=== PATIENT | male | born 1965 | race Caucasian/White ===

== ENCOUNTER → 2018-08-14 | Outpatient (CLI) | payer OTHER ==
[~2018-08-14] MED LIST: CYCL-259 PO; MELO15TA24 PO; MELO7.5T31 PO; OXYC5TAB2 PO; TRAM50TA2 PO
[2018-08-14 13:49] LABS: BASOPHILS # (AUTO) 0.03 x10^3/uL (0-0.1); BASOPHILS % (AUTO) 0 % (0-1); EOSINOPHILS # (AUTO) 0.13 x10^3/uL (0-0.4); EOSINOPHILS % (AUTO) 2 % (1-7); LYMPHOCYTES # (AUTO) 2.52 x10^3/uL (1-3.4); LYMPHOCYTES % (AUTO) 28 % (22-44); MD NO; MEAN CORPUSCULAR HEMOGLOBIN 32.5 pg (27.5-34.5); MEAN CORPUSCULAR HGB CONC 34.4 g/dL (33.2-36.2); MEAN CORPUSCULAR VOLUME 94.4 fL (81-97); MEAN PLATELET VOLUME 8.4 fL (7.4-10.4); MONOCYTES # (AUTO) 0.67 x10^3/uL (0.2-0.8); MONOCYTES % (AUTO) 8 % (2-9); NEUTROPHILS # (AUTO) 5.68 x10^3/uL (1.8-6.8); NEUTROPHILS % (AUTO) 63 % (42-75); PLATELET COUNT 274 x10^3/uL (130-400); RED BLOOD COUNT 4.94 x10^6/uL (4.38-5.82); RED CELL DISTRIBUTION WIDTH 13.8 % (9.4-14.8)
[2018-08-14 13:59] LABS: ALANINE AMINOTRANSFERASE 45 U/L (12-78); ALBUMIN 4.4 g/dL (3.4-5.0); ANION GAP 9 mmol/L (5-15); CHLORIDE 109 mmol/L (98-107)
[2018-08-14 14:00] LABS: INTERNATIONAL NORMALIZED RATIO 0.97 (0.93-1.1)
[2018-08-14 14:02] LABS: ALKALINE PHOSPHATASE 42 U/L (45-117); BILIRUBIN,TOTAL 0.4 mg/dL (0.2-1.0); CREATININE 0.88 mg/dL (0.7-1.3); TOTAL PROTEIN 7.9 g/dL (6.4-8.2)
[2018-08-14 14:12] LABS: HEMOGLOBIN A1C 5.6 % (4.2-6.3)
== END | disposition home or self-care (01) ==
LOC: STAR 13:10
PROVIDERS: ATTEND Orthopaedic Surgery
DX: Z01.818 Encounter for other preprocedural examination (principal); M16.11 Unilateral primary osteoarthritis, right hip; M25.551 Pain in right hip
CPT/HCPCS: 36415; 80053; 83036; 85025; 85610; 85730; 87081; 93005

== ENCOUNTER 2018-08-20 10:52 | Inpatient (IN) | payer OTHER ==
[~2018-08-20] VITALS: Ht 175.3 cm; Wt 93.9 kg
[~2018-08-20 10:52] MED LIST changes: -MELO7.5T31 PO; -OXYC5TAB2 PO; -TRAM50TA2 PO
[2018-08-20] MEDS ORDERED: LACTATED RINGERS 1,000 ML IV SCH (11:11)
[2018-08-20] MEDS ORDERED: GABAPENTIN 300 MG CAPSULE PO ONE (11:30)
[2018-08-20] MEDS ORDERED: ACETAMINOPHEN 500 MG TABLET PO ONE (11:30)
[2018-08-20] MEDS ORDERED: OxyconTIN ER 20 MG TAB.ER PO ONE (11:30)
[2018-08-20] MEDS ORDERED: MIDAZOLAM 1 MG/ML, 2ML ONE (12:30)
[2018-08-20] MEDS ORDERED: FENTANYL PF 250 MCG/5ML ONE ×2 (12:30→14:23)
[2018-08-20] MEDS ORDERED: PROPOFOL 10 MG/ML, 20ML ONE (12:31)
[2018-08-20] MEDS ORDERED: SODIUM CHLORIDE 0.9% PF 10ML ONE (12:31)
[2018-08-20] MEDS ORDERED: CEFAZOLIN 1,000 MG ONE ×2 (12:32)
[2018-08-20] MEDS ORDERED: NEOSTIGMINE 1 MG/ML, 10ML ONE ×2 (12:33→14:43)
[2018-08-20] MEDS ORDERED: GLYCOPYRROLATE 0.2MG/1ML, 5ML ONE (12:33)
[2018-08-20] MEDS ORDERED: ROCURONIUM 10MG/ML,5ML ONE (12:33)
[2018-08-20] MEDS ORDERED: KETOROLAC 60 MG/2 ML ONE (13:12)
[2018-08-20] MEDS ORDERED: TRANEXAMIC ACID 100 MG/ML, 10ML ONE ×2 (13:13→13:14)
[2018-08-20] MEDS ORDERED: EPINEPHRINE 1 MG/ML, 1ML ONE (13:13)
[2018-08-20] MEDS ORDERED: ROPIvacaine/PF 0.5%, 30 ML ONE (13:13)
[2018-08-20] MEDS ORDERED: VANCOMYCIN 1,000 MG ONE (13:13)
[2018-08-20] MEDS ORDERED: SODIUM CHLORIDE 0.9% 100 ML ONE (13:13)
[2018-08-20] MEDS ORDERED: MORPHINE SULFATE 4 MG/ML, 1ML IVPush PRN (14:00)
[2018-08-20] MEDS ORDERED: ONDANSETRON ODT 8 MG PO PRN (14:00)
[2018-08-20] MEDS ORDERED: PROMETHAZINE 25 MG SUPP PR PRN (14:00)
[2018-08-20] MEDS ORDERED: PROMETHAZINE 25 MG/ML, 1ML IV PRN (14:00)
[2018-08-20] MEDS ORDERED: ONDANSETRON 2MG/ML, 2ML IV PRN ×2 (14:00→15:00)
[2018-08-20] MEDS ORDERED: hydrALAzine 20 MG/ML, 1ML IV PRN (14:00)
[2018-08-20] MEDS ORDERED: PROMETHAZINE 25 MG/ML, 1ML IM PRN ×2 (14:00)
[2018-08-20] MEDS ORDERED: LABETALOL 5MG/ML, 20ML IV PRN (14:00)
[2018-08-20] MEDS ORDERED: MEPERIDINE/PF 25MG/0.5ML IVPush PRN (14:00)
[2018-08-20] MEDS ORDERED: FENTANYL PF 100 MCG/2ML IV PRN (14:00)
[2018-08-20] MEDS ORDERED: PROMETHAZINE 12.5 MG SUPP PR PRN (14:00)
[2018-08-20] MEDS ORDERED: GLYCOPYRROLATE 0.4 MG/2 ML, 2ML ONE (14:43)
[2018-08-20] MEDS ORDERED: SENNA/DOCUSATE TABLET PO PRN (15:00)
[2018-08-20] MEDS ORDERED: HYDROcodone/APAP 5/325 TABLET PO PRN (15:00)
[2018-08-20] MEDS ORDERED: ONDANSETRON 4 MG TABLET PO PRN (15:00)
[2018-08-20] MEDS ORDERED: CYCLOBENZAPRINE 10 MG TABLET PO PRN (15:00)
[2018-08-20] MEDS ORDERED: ACETAMINOPHEN 325 MG TABLET PO PRN (15:00)
[2018-08-20] MEDS ORDERED: DIPHENHYDRAMINE 50 MG CAPSULE PO PRN (15:00)
[2018-08-20] MEDS ORDERED: ZOLPIDEM 5MG TABLET PO PRN (15:00)
[2018-08-20] MEDS ORDERED: BISACODYL 10 MG SUPP PR PRN (15:00)
[2018-08-20] MEDS ORDERED: MAGNESIUM HYDROXIDE 8%, 30ML UDC PO PRN (15:00)
[2018-08-20] MEDS ORDERED: OXYcodone 5 MG/5 ML ORAL.SOL UDC ONE ×2 (15:17→15:38)
[2018-08-20] MEDS ORDERED: HYDROmorphone 2 MG/ML, 1ML ONE ×2 (15:17→16:09)
[2018-08-20] MEDS: HYDROmorphone 1 MG/ML, 1ML IV PRN ×6 (15:22→16:18)
[2018-08-20] MEDS: OXYcodone 5 MG/5 ML ORAL.SOL UDC PO PRN ×2 (15:23→15:40)
[2018-08-20] MEDS ORDERED: TRANEXAMIC ACID 1,000 MG in SODIUM CHLORIDE 0.9% 100 ML IV ONE (16:00)
[2018-08-20] MEDS ORDERED: CEFAZOLIN PMX 2GM/50ML 50 ML IVPB SCH (17:00)
[2018-08-20] MEDS ORDERED: SCOPOLAMINE PATCH, 1.5MG PATCH.TD72 TD ONE (17:00)
[2018-08-20] MEDS ORDERED: CEFAZOLIN 2,000 MG in SODIUM CHLORIDE 0.9% 50 ML IVPB SCH (17:30)
[2018-08-20 19:30] VITALS: BP 131/94
[2018-08-20] MEDS: DOCUSATE 100 MG CAPSULE PO SCH (20:29)
[2018-08-20] MEDS: CEFAZOLIN 2,000 MG in SODIUM CHLORIDE 0.9% 50 ML IVPB SCH (20:29)
[2018-08-20] MEDS: ASPIRIN 81 MG TABLET EC PO SCH (20:29)
[2018-08-20] MEDS: NS + 20MEQ KCL 1,000 ML IV SCH (20:38)
[2018-08-20] MEDS: OXYcodone IR 5MG TABLET PO PRN ×2 (21:26→21:57)
[2018-08-20 23:58] VITALS: BP 132/83
[2018-08-21] MEDS: OXYcodone IR 5MG TABLET PO PRN ×2 (02:45→08:36)
[2018-08-21 04:10] VITALS: BP 123/86
[2018-08-21] MEDS: CEFAZOLIN 2,000 MG in SODIUM CHLORIDE 0.9% 50 ML IVPB SCH (04:10)
[2018-08-21] MEDS: ASPIRIN 81 MG TABLET EC PO SCH (05:44)
[2018-08-21] MEDS ORDERED: DEXAMETHASONE 4 MG/ML, 1ML IVPush SCH (06:00)
[2018-08-21 07:06] VITALS: BP 138/89
[2018-08-21] MEDS: NS + 20MEQ KCL 1,000 ML IV SCH (08:00)
[2018-08-21] MEDS ORDERED: SCOPOLAMINE PATCH, 1.5MG PATCH.TD72 TD SCH (08:30)
[2018-08-21] MEDS: DOCUSATE 100 MG CAPSULE PO SCH (08:36)
[2018-08-21] MEDS ORDERED: MELOXICAM 15 MG TABLET PO SCH (09:00)
[2018-08-21] MEDS ORDERED: OXYC5TAB2 PO (09:18)
[2018-08-21] MEDS ORDERED: TRAM50TA2 PO (09:20)
[2018-08-21] MEDS ORDERED: MELO7.5T31 PO (09:21)
== END 2018-08-21 10:41 | disposition home or self-care (01) | DRG 470 ==
LOC: ORIP 10:52 → 4NOR 16:55 → DCLOUNGE 08-21 10:30
PROVIDERS: ADMIT Orthopaedic Surgery; ATTEND Orthopaedic Surgery
PROC: 0SR906A Replacement of Right Hip Joint with Oxidized Zirconium on Polyethylene Synthetic Substitute, Uncemented, Open Approach (ICD-10-PCS; principal; 2018-08-20 13:00)
DX: M87.851 Other osteonecrosis, right femur (principal)
CPT/HCPCS: 36415; 72170; 73501; 76000; J3490; 85014; 85018; C1713; G0378; J0171; J0690; J1100; J1170; J1885; J2250; J2704; J2710; J2795; J3010; J3370; J3480; Q0162; C1776; J7120